=== PATIENT | female | born 1975 | race African-American/Black ===

== ENCOUNTER 2017-02-27 09:14 | Inpatient (IN) | payer OTHER ==
[2017-02-27 10:01] VITALS: BMI 20.5
--- NOTE | 2017-02-27 12:31 | HP ---
CIWA Score - CIWA Score Nausea/Vomitin-Int. Nausea w/Dry Heave Muscle Tremors: 4-Moderate,w/Arms Extend Anxiety: 4-Mod. Anxious/Guarded Agitation: 4-Moderately Restless Paroxysmal Sweats: 1-Minimal Palms Moist Orientation: 0-Oriented Tacttile Disturbances: 3-Moderate Itch/Numb/Burn Auditory Disturbances: 0-None Visual Disturbances: 0-None Headache: 2-Mild CIWA-Ar Total Score: 22 Admission ROS S - HPI Chief Complaint: DETOX TX FOR VALIUM AND ALCOHOL Allergies/Adverse Reactions: Allergies Allergy/AdvReac Type Severity Reaction Status Date / Time No Known Allergies Allergy Verified 02/27/17 11:01 History of Present Illness: 41 Y/O AA/FEMALE(TRANSGENDER MALE) WITH A HX OF ALCOHOL,VALIUM, MARIJUANA, METHAMPHETAMINE AND GBI(ETIZOLAM) SEEKING DETOX TX. PT STATES " I WANNA CHANGE MY LIFE". Exam Limitations: No Limitations - Ebola screening Have you traveled outside of the country in the last 21 days: No Have you had contact with anyone from an Ebola affected area: No Have you been sick,other than usual withdrawal symptoms: No - Review of Systems Constitutional: Chills, Loss of Appetite, Night Sweats, Changes in sleep, Unintentional Wgt. Loss EENT: reports: Tearing, Nose Congestion, Dental Problems (SENSITIVE TEETH) Respiratory: reports: No Symptoms reported Cardiac: reports: Lightheadedness GI: reports: Constipated, Diarrhea, Nausea, Poor Appetite, Poor Fluid Intake, Vomiting : reports: Dysuria, Other (DENIES SURGICAL CHANGE AT PRESENT.) Musculoskeletal: reports: Back Pain, Joint Pain, Muscle Pain Integumentary: reports: Bruising (LEFT THIGHS ON/OFF) Neuro: reports: Headache, Unsteady Gait, Dizziness Endocrine: reports: No Symptoms Reported Hematology: reports: No Symptoms Reported Psychiatric: reports: Orientated x3, Anxious, Depressed Other Systems: Reviewed and Negative Patient History - Patient Medical History Hx Anemia: No Hx Asthma: No Hx Chronic Obstructive Pulmonary Disease (COPD): No Hx Cancer: No Hx Cardiac Disorders: No Hx Congestive Heart Failure: No Hx Hypertension: No Hx Hypercholesterolemia: No Hx Pacemaker: No HX Cerebrovascular Accident: No Hx Seizures: No Hx Dementia: No Hx Diabetes: No Hx Gastrointestinal Disorders: No Hx Liver Disease: No Hx Genitourinary Disorders: Yes (UTI IN THE PAST) Hx Sexually Transmitted Disorders: Yes (SYPHILIS TX IN THE PAST) Hx Renal Disease (ESRD): No Hx Thyroid Disease: No Hx Human Immunodeficiency Virus (HIV): Yes (SINCE 1997;ON COMPLERA) Hx Hepatitis C: Yes (currently on harvoni) Hx Depression: Yes (NO MEDS) Hx Suicide Attempt: Yes (Tried to cut wrist in teens;DENIES CURRENT IDEATIONS) Hx Bipolar Disorder: No Hx Schizophrenia: No - Patient Surgical History Past Surgical History: Yes Hx Neurologic Surgery: No Hx Cataract Extraction: No Hx Cardiac Surgery: No Hx Lung Surgery: No Hx Breast Surgery: No ( ) Hx Breast Biopsy: No Hx Abdominal Surgery: No (UMBILICAL HERNIA SX 2013) Hx Appendectomy: No Hx Cholecystectomy: No Hx Genitourinary Surgery: No Hx Section: No Hx Orthopedic Surgery: No Hx Hysterectomy: No Anesthesia Reaction: No - PPD History Previous Implant?: Yes Documented Results: Negative w/o proof Implanted On Prior [facility] Admission?: Yes Date: 03/12/15 PPD to be Administered?: Yes - Reproductive History Patient is a Female of Child Bearing Age (11 -55 yrs old): No (TRANSGENDER MALE- DENIES SURGICAL CHANGE AT PRESENT.) - Smoking Cessation Smoking history: Current some day smoker Have you smoked in the past 12 months: No Aproximately how many cigarettes per day: 9 If you are a former smoker, when did you quit?: 10/17 Cigars Per Day: 0 Hx Chewing Tobacco Use: No Initiated information on smoking cessation: Yes 'Breaking Loose' booklet given: 02/27/17 - Substance & Tx. History Hx Alcohol Use: Yes (VODKA) Hx Substance Use: Yes (VALIUM/MARIJUANA/GBI/CRYSTAL METHAMPETAMINE) Substance Use Type: Alcohol, Marijuana, Tranquilizers Hx Substance Use Treatment: Yes ([facility]) - Substances Abused Alcohol Route: Oral Frequency: Daily Amount used: 1 pint vodka Age of first use: 17 Date of Last Use: 02/26/17 Diazepam Route: Oral Frequency: Daily Amount used: 20 mg Age of first use: 17 Date of Last Use: 02/26/17 Marijuana/Hashish Route: Smoking Frequency: Daily Amount used: 1/4 ounce Age of first use: 14 Date of Last Use: 02/27/17 crystal meth Route: Smoking Frequency: 1-3 times last 30 days Amount used: 2 grams Age of first use: 36 Date of Last Use: 02/27/17 Family Disease History - Family Disease History Family Disease History: Other: Father (sub abuse), Mother (sub abuse) Admission Physical Exam [facility] - Vital Signs Vital Signs: Vital Signs - 24 hr 02/27/17 09:59 Temperature 98.3 F Pulse Rate 86 Respiratory 18 Rate Blood Pressure 133/82 - Physical General Appearance: Yes: Moderate Distress, Irritable, Anxious HEENTM: Yes: EOMI, Normocephalic, DAMION Respiratory: Yes: Chest Non-Tender, Lungs Clear, Normal Breath Sounds, No Respiratory Distress Neck: Yes: Supple, Trachea in good position Breast: Yes: Breast Exam Deferred Cardiology: Yes: Regular Rhythm, Regular Rate, S1, S2 Abdominal: Yes: Normal Bowel Sounds, Non Tender, Flat, Soft Genitourinary: Yes: Other (N/C) Back: Yes: Within Normal Limits Musculoskeletal: Yes: full range of Motion, Gait Steady Extremities: Yes: Normal Range of Motion, Non-Tender Neurological: Yes: grab setter II-XII NML intact, Fully Oriented, Alert Integumentary: Yes: Dry, Warm, Other (RESOLVING ECHYMOTIC AREAS ON BOTH THIGHS DUE TO EASY BRUISING.) - Diagnostic (1) HIV (human immunodeficiency virus infection) Current Visit: Yes Status: Chronic Comment: labs for viral markers today, cont daily adherence, monitor. (2) Transgendered Current Visit: Yes Status: Chronic Comment: as per d/w dr. reese, will cont estrogen injections, incr spironolactone. (3) BMI (body mass index) 20.0-29.9 Current Visit: Yes Status: Deleted Comment: gained 4#, cont ensure and balanced diet. (4) Sedative, hypnotic or anxiolytic dependence with withdrawal, uncomplicated Current Visit: Yes Status: Chronic (5) Cannabis dependence, uncomplicated Current Visit: Yes Status: Chronic Cleared for Admission [facility] - Detox or Rehab [facility] Level of Care: Medically Managed Detox Regimen/Protocol: Valium [facility] Breath Alcohol Content Breath Alcohol Content: 0 Urine Drug Screen - Results Drug Screen Negative: No Urine Drug Screen Results: THC-Marijuana, AMP-Amphetamines, MET-Methamphetamine , BZO-Benzodiazepines
[2017-02-27] MEDS ORDERED: diphenhydrAMINE HCL 50 MG CAPSULE PO PRN (12:54)
[2017-02-27] MEDS ORDERED: MAGNESIUM CITRATE 300 ML BOTTLE PO PRN (12:54)
[2017-02-27] MEDS ORDERED: LOPERAMIDE HCL 2 MG CAPSULE PO PRN (12:54)
[2017-02-27] MEDS ORDERED: ACETAMINOPHEN 325 MG TABLET (FP) PO PRN (12:54)
[2017-02-27] MEDS ORDERED: P-EPHED 60MG/TRIPROLIDI 2.5MG TABLET PO PRN (12:54)
[2017-02-27] MEDS ORDERED: MENTHOL/PHENOL 1 EACH UD MM PRN (12:54)
[2017-02-27] MEDS ORDERED: diazePAM 5 MG TABLET PO PRN (12:54)
[2017-02-27] MEDS ORDERED: IBUPROFEN 400 MG TABLET (FP) PO PRN (12:54)
[2017-02-27] MEDS ORDERED: guaiFENesin/D-METHORPHAN HB 10 ML UNIT-DOSE CUPS PO PRN (12:54)
[2017-02-27] MEDS ORDERED: hydrOXYzine PAMOATE 25 MG CAPSULE (FP) PO PRN (12:54)
[2017-02-27] MEDS ORDERED: MAGNESIUM HYDROX 2400MG/30ML ORAL SUSPENSION 30 ML CUP PO PRN (12:54)
[2017-02-27] MEDS ORDERED: MAG HYDROX/AL HYDROX/SIMETH 30 ML UNIT-DOSE CUP PO PRN (12:54)
[2017-02-27] MEDS ORDERED: ASPIRIN 81 MG CHEWABLE TABLETS PO SCH (13:00)
[2017-02-27] MEDS ORDERED: diazePAM 5 MG TABLET PO ONE (13:04)
[2017-02-27] MEDS: SPIRONOLACTONE 25 MG TABLET (FP) PO SCH ×2 (14:09→22:13)
[2017-02-27] MEDS: diazePAM 5 MG TABLET PO SCH ×2 (14:13→22:13)
[2017-02-27] MEDS: LORATADINE 10 MG TABLET PO SCH (14:13)
--- NOTE | 2017-02-27 16:34 | CONSULT ---
[facility] Psychiatric Consult - Data Date of interview: 02/27/17 Admission source: [facility] Identifying data: First admission to [facility] for this 41 y/o AA transgender male seeking detox treatment,on ,for alcohol,amphetamine, marijuanacocaine and benzodiazepine dependence.Patient is single without children,domiciled,unemployed and supported on SSI benefits. Substance Abuse History: Urine Drug Screen Results: THC-Marijuana, SHAINA-Cocaine, OPI-Opiates, MTD-Methadone.Noted. - Smoking Cessation. Smoking history: Current some day smoker. Have you smoked in the past 12 months: No. Aproximately how many cigarettes per day: 9. If you are a former smoker, when did you quit?: 10/17. Cigars Per Day: 0. Hx Chewing Tobacco Use: No. Initiated information on smoking cessation: Yes. 'Breaking Loose' booklet given : 02/27/17. - Substance & Tx. History. Hx Alcohol Use: Yes (VODKA). Hx Substance Use: Yes (VALIUM/MARIJUANA/GBI/CRYSTAL METHAMPETAMINE). Substance Use Type: Alcohol, Marijuana, Tranquilizers. Hx Substance Use Treatment: Yes ( [facility]). - Substances Abused. Alcohol. Route: Oral. Frequency: Daily. Amount used: 1 pint vodka. Age of first use: 17. Date of Last Use: . Diazepam. Route: Oral. Frequency: Daily. Amount used: 20 mg. Age of first use: 17. Date of Last Use: 02/26/17. Marijuana/Hashish. Route: Smoking. Frequency: Daily. Amount used: 1/4 ounce. Age of first use: 14. Date of Last Use: 02/27/17. crystal meth. Route: Smoking. Frequency: 1-3 times last 30 days. Amount used: 2 grams. Age of first use: 36. Date of Last Use: 02/27/17. Confirmed by patient. Medical History: HIV infection since 1997,hepatitis C,weight loss and past history of treatment for syphilis.Remote history of inguinal herniorraphy. Psychiatric History: Remote history of a psychiatric hospitalization (name of facility not recalled).Diagnosis : none as per patient.No OPD care.Not on psychotropic medications.Leeann Martinez reports a history of suicide attempt via wrist-cutting during teenage years. Physical/Sexual Abuse/Trauma History: Patient declines to discuss this topic. Mental Status Exam - Mental Status Exam Alert and Oriented to: Time, Place, Person Cognitive Function: Good Patient Appearance: Well Groomed (thin habitus) Mood: Apprehensive Affect: Appropriate Patient Behavior: Fatigued, Cooperative Speech Pattern: Clear Voice Loudness: Normal Thought Process: Goal Oriented Thought Disorder: Not Present Hallucinations: Denies Suicidal Ideation: Denies Homicidal Ideation: Denies Insight/Judgement: Poor Sleep: Well (as per self report) Appetite: Good Muscle strength/Tone: Normal Gait/Station: Normal Psychiatric Findings - Problem List ([place] 1, 2,3) (1) Cannabis dependence, uncomplicated Current Visit: Yes Status: Acute (2) Sedative, hypnotic or anxiolytic dependence with withdrawal, uncomplicated Current Visit: Yes Status: Acute (3) Amphetamine abuse Current Visit: Yes Status: Acute (4) Cocaine dependence Current Visit: Yes Status: Acute (5) Substance induced mood disorder Current Visit: Yes Status: Acute (6) HIV (human immunodeficiency virus infection) Current Visit: Yes Status: Chronic Comment: labs for viral markers today, cont daily adherence, monitor. (7) Hypertriglyceridemia Current Visit: Yes Status: Chronic Comment: labs today, may need to start statin if persistent. low chol/fat diet advised. (8) Weight loss Current Visit: Yes Status: Chronic Comment: offer ensure supplement, labs today, she suspects is r/t hormone fluctuation, appetite is good, normal po intake. - Initial Treatment Plan Initial Treatment Plan: Psychoeducation.Detoxification.Observation.
[2017-02-27 17:03] LABS: URINE APPEARANCE CLEAR; URINE BILIRUBIN NEGATIVE (NEGATIVE); URINE BLOOD NEGATIVE (NEGATIVE); URINE COLOR LTYELLOW; URINE GLUCOSE (UA) NEGATIVE (NEGATIVE); URINE KETONE NEGATIVE (NEGATIVE); URINE LEUK ESTERASE NEGATIVE (NEGATIVE); URINE NITRITE NEGATIVE (NEGATIVE); URINE PROTEIN NEGATIVE (NEGATIVE); URINE UROBILINOGEN NEGATIVE E.U./dl (0.2-1.0)
[2017-02-27] MEDS: THIAMINE HCL 100 MG TABLET (FP) PO SCH (22:13)
[2017-02-28] MEDS: diazePAM 5 MG TABLET PO SCH ×3 (05:35→23:12)
[2017-02-28] MEDS: SPIRONOLACTONE 25 MG TABLET (FP) PO SCH ×3 (07:42→23:13)
[2017-02-28] MEDS: EMTRICITAB/RILPIVIRINE/TENOFOV 1 EACH TABLET PO SCH (07:43)
[2017-02-28 10:56] LABS: MCH 29.8 pg (25.7-33.7); MCHC 33.4 g/dl (32.0-36.0); MEAN CELL VOLUME 89.4 fl (80-96); MEAN PLT VOLUME 9.3 fl (7.5-11.1); PLATELET COUNT 273 K/MM3 (134-434); RDW 14.7 % (11.6-15.6); WHITE BLOOD COUNT 6.1 K/mm3 (4.0-10.0)
[2017-02-28] MEDS: PRENATAL VITAMINS W/ FOLIC ACID TABLET (FP) PO SCH (10:56)
[2017-02-28] MEDS: LORATADINE 10 MG TABLET PO SCH (10:56)
[2017-02-28] MEDS: ASPIRIN 81 MG CHEWABLE TABLETS PO SCH (10:56)
[2017-02-28 11:13] LABS: ALBUMIN 3.9 g/dl (3.4-5.0); CALCIUM 8.9 mg/dL (8.5-10.1)
[2017-02-28 11:19] LABS: ALK PHOS 79 U/L (45-117); ANION GAP 9 (8-16); BILIRUBIN,TOTAL 0.4 mg/dL (0.2-1.0); CO2 26 mmol/L (21-32); COCKROFT - GAULT 90.3635; CREATININE 0.8 mg/dL (0.55-1.02); GLUCOSE,RANDOM 89 mg/dL (74-106); SGOT/AST 28 U/L (15-37); SGPT/ALT 21 U/L (12-78); TOT PROT 7.1 g/dl (6.4-8.2)
[2017-02-28 12:49] LABS: SICKLE CELL SCREEN POSITIVE (NEGATIVE)
--- NOTE | 2017-02-28 13:23 | PN ---
S CIWA - CIWA Score Nausea/Vomitin Muscle Tremors: 3 Anxiety: 3 Agitation: 2 Paroxysmal Sweats: 1-Minimal Palms Moist Orientation: 0-Oriented Tacttile Disturbances: 1-Very Mild Itch/Numbness Auditory Disturbances: 1-Very Mild Visual Disturbances: 1-Very Mild Sensitivity Headache: 2-Mild CIWA-Ar Total Score: 17 BHS Progress Note (SOAP) Subjective: ALERT,IRRITABLE,ANXIOUS,INTERRUPTED SLEEP,TREMOR Objective: 02/28/17 13:21 Vital Signs Temperature 98.1 F 02/28/17 11:09 Pulse Rate 88 02/28/17 11:09 Respiratory Rate 20 02/28/17 11:09 Blood Pressure 124/80 02/28/17 11:09 O2 Sat by Pulse Oximetry (%) EKG NSR,NORMAL ECG Laboratory Last Values WBC 6.1 K/mm3 (4.0-10.0) 02/28/17 06:05 RBC 4.22 M/mm3 (3.60-5.2) 02/28/17 06:05 Hgb 12.6 GM/dL (10.7-15.3) 02/28/17 06:05 Hct 37.7 % (32.4-45.2) 02/28/17 06:05 MCV 89.4 fl (80-96) 02/28/17 06:05 MCHC 33.4 g/dl (32.0-36.0) 02/28/17 06:05 RDW 14.7 % (11.6-15.6) 02/28/17 06:05 Plt Count 273 K/MM3 (134-434) 02/28/17 06:05 MPV 9.3 fl (7.5-11.1) 02/28/17 06:05 Sickle Cell Screen Positive (NEGATIVE) 02/28/17 06:05 Sodium 140 mmol/L (136-145) 02/28/17 06:05 Potassium 4.2 mmol/L (3.5-5.1) 02/28/17 06:05 Chloride 105 mmol/L (98-107) 02/28/17 06:05 Carbon Dioxide 26 mmol/L (21-32) 02/28/17 06:05 Anion Gap 9 (8-16) 02/28/17 06:05 BUN 8 mg/dL (7-18) 02/28/17 06:05 Creatinine 0.8 mg/dL (0.55-1.02) 02/28/17 06:05 Creat Clearance w eGFR > 60 (>60) 02/28/17 06:05 Random Glucose 89 mg/dL (74-106) 02/28/17 06:05 Calcium 8.9 mg/dL (8.5-10.1) 02/28/17 06:05 Total Bilirubin 0.4 mg/dL (0.2-1.0) 02/28/17 06:05 AST 28 U/L (15-37) D 02/28/17 06:05 ALT 21 U/L (12-78) 02/28/17 06:05 Alkaline Phosphatase 79 U/L (45-117) 02/28/17 06:05 Total Protein 7.1 g/dl (6.4-8.2) 02/28/17 06:05 Albumin 3.9 g/dl (3.4-5.0) 02/28/17 06:05 Urine Color Ltyellow 02/27/17 14:00 Urine Appearance Clear 02/27/17 14:00 Urine pH 7.0 (5.0-8.0) 02/27/17 14:00 Ur Specific [place] 1.014 (1.001-1.035) 02/27/17 14:00 Urine Protein Negative (NEGATIVE) 02/27/17 14:00 Urine Glucose (UA) Negative (NEGATIVE) 02/27/17 14:00 Urine Ketones Negative (NEGATIVE) 02/27/17 14:00 Urine Blood Negative (NEGATIVE) 02/27/17 14:00 Urine Nitrite Negative (NEGATIVE) 02/27/17 14:00 Urine Bilirubin Negative (NEGATIVE) 02/27/17 14:00 Urine Urobilinogen Negative E.U./dl (0.2-1.0) 02/27/17 14:00 Ur Leukocyte Esterase Negative (NEGATIVE) 02/27/17 14:00 RPR Titer Nonreactive (NONREACTIVE) 02/28/17 06:05 Assessment: 02/28/17 13:22 WITHDRAWAL SYMPTOM Plan: CONTINUE DETOX
[2017-02-28] MEDS: THIAMINE HCL 100 MG TABLET (FP) PO SCH (23:12)
[2017-03-01] MEDS: SPIRONOLACTONE 25 MG TABLET (FP) PO SCH ×3 (06:13→22:15)
[2017-03-01] MEDS: ASPIRIN 81 MG CHEWABLE TABLETS PO SCH (10:38)
[2017-03-01] MEDS: LORATADINE 10 MG TABLET PO SCH (10:38)
[2017-03-01] MEDS: diazePAM 5 MG TABLET PO SCH ×2 (10:38→22:16)
[2017-03-01] MEDS: PRENATAL VITAMINS W/ FOLIC ACID TABLET (FP) PO SCH (10:38)
[2017-03-01] MEDS: EMTRICITAB/RILPIVIRINE/TENOFOV 1 EACH TABLET PO SCH (10:38)
--- NOTE | 2017-03-01 14:14 | PN ---
S CIWA - CIWA Score Nausea/Vomitin Muscle Tremors: 3 Anxiety: 3 Agitation: 2 Paroxysmal Sweats: 1-Minimal Palms Moist Orientation: 0-Oriented Tacttile Disturbances: 1-Very Mild Itch/Numbness Auditory Disturbances: 1-Very Mild Visual Disturbances: 1-Very Mild Sensitivity Headache: 2-Mild CIWA-Ar Total Score: 17 BHS Progress Note (SOAP) Subjective: ALERT,IRRITABLE,ANXIOUS,TREMOR,INTERRUPTED SLEEP Objective: 03/01/17 14:13 Vital Signs Temperature 98.2 F 03/01/17 10:30 Pulse Rate 91 H 03/01/17 10:30 Respiratory Rate 18 03/01/17 10:30 Blood Pressure 126/79 03/01/17 10:30 O2 Sat by Pulse Oximetry (%) Laboratory Last Values WBC 6.1 K/mm3 (4.0-10.0) 02/28/17 06:05 RBC 4.22 M/mm3 (3.60-5.2) 02/28/17 06:05 Hgb 12.6 GM/dL (10.7-15.3) 02/28/17 06:05 Hct 37.7 % (32.4-45.2) 02/28/17 06:05 MCV 89.4 fl (80-96) 02/28/17 06:05 MCHC 33.4 g/dl (32.0-36.0) 02/28/17 06:05 RDW 14.7 % (11.6-15.6) 02/28/17 06:05 Plt Count 273 K/MM3 (134-434) 02/28/17 06:05 MPV 9.3 fl (7.5-11.1) 02/28/17 06:05 Sickle Cell Screen Positive (NEGATIVE) 02/28/17 06:05 Sodium 140 mmol/L (136-145) 02/28/17 06:05 Potassium 4.2 mmol/L (3.5-5.1) 02/28/17 06:05 Chloride 105 mmol/L (98-107) 02/28/17 06:05 Carbon Dioxide 26 mmol/L (21-32) 02/28/17 06:05 Anion Gap 9 (8-16) 02/28/17 06:05 BUN 8 mg/dL (7-18) 02/28/17 06:05 Creatinine 0.8 mg/dL (0.55-1.02) 02/28/17 06:05 Creat Clearance w eGFR > 60 (>60) 02/28/17 06:05 Random Glucose 89 mg/dL (74-106) 02/28/17 06:05 Calcium 8.9 mg/dL (8.5-10.1) 02/28/17 06:05 Total Bilirubin 0.4 mg/dL (0.2-1.0) 02/28/17 06:05 AST 28 U/L (15-37) D 02/28/17 06:05 ALT 21 U/L (12-78) 02/28/17 06:05 Alkaline Phosphatase 79 U/L (45-117) 02/28/17 06:05 Total Protein 7.1 g/dl (6.4-8.2) 02/28/17 06:05 Albumin 3.9 g/dl (3.4-5.0) 02/28/17 06:05 Urine Color Ltyellow 02/27/17 14:00 Urine Appearance Clear 02/27/17 14:00 Urine pH 7.0 (5.0-8.0) 02/27/17 14:00 Ur Specific [place] 1.014 (1.001-1.035) 02/27/17 14:00 Urine Protein Negative (NEGATIVE) 02/27/17 14:00 Urine Glucose (UA) Negative (NEGATIVE) 02/27/17 14:00 Urine Ketones Negative (NEGATIVE) 02/27/17 14:00 Urine Blood Negative (NEGATIVE) 02/27/17 14:00 Urine Nitrite Negative (NEGATIVE) 02/27/17 14:00 Urine Bilirubin Negative (NEGATIVE) 02/27/17 14:00 Urine Urobilinogen Negative E.U./dl (0.2-1.0) 02/27/17 14:00 Ur Leukocyte Esterase Negative (NEGATIVE) 02/27/17 14:00 RPR Titer Nonreactive (NONREACTIVE) 02/28/17 06:05 Assessment: 03/01/17 14:13 WITHDRAWAL SYMPTOM Plan: CONTINUE DETOX
[2017-03-01] MEDS: THIAMINE HCL 100 MG TABLET (FP) PO SCH (22:15)
--- NOTE | 2017-03-02 00:15 | EKG ---
Test Reason : Blood Pressure : / mmHG Vent. Rate : 077 BPM Atrial Rate : 077 BPM P-R Int : 154 ms QRS Dur : 084 ms QT Int : 382 ms P-R-T Axes : 065 063 062 degrees QTc Int : 432 ms NORMAL SINUS RHYTHM NORMAL ECG NO PREVIOUS ECGS AVAILABLE Confirmed by ECTOR CHE, UDAY ([id number]) on 03/02/2017 12:15:22 AM Referred By: Surinder Mosley Confirmed By:UDAY BARNEY MD
[2017-03-02] MEDS: SPIRONOLACTONE 25 MG TABLET (FP) PO SCH (05:36)
[2017-03-02] MEDS: EMTRICITAB/RILPIVIRINE/TENOFOV 1 EACH TABLET PO SCH (07:44)
--- NOTE | 2017-03-02 10:30 | PN ---
S Progress Note (SOAP) Subjective: I am feeling much better i am not taking anymore medication Objective: 03/02/17 10:29 Vital Signs Temperature 98.8 F 03/02/17 06:00 Pulse Rate 80 03/02/17 06:00 Respiratory Rate 16 03/02/17 06:00 Blood Pressure 133/74 03/02/17 06:00 O2 Sat by Pulse Oximetry (%) awake/alert ambulating no acute distress Assessment: 03/02/17 10:30 no withdrawal s/s noted Plan: d/c home today.
[2017-03-02 10:40] VITALS: BP 114/94; PULSE 117; TEMP 99.1
[2017-03-02] MEDS: diazePAM 5 MG TABLET PO SCH (10:40)
[2017-03-02] MEDS: PRENATAL VITAMINS W/ FOLIC ACID TABLET (FP) PO SCH (10:40)
[2017-03-02] MEDS: ASPIRIN 81 MG CHEWABLE TABLETS PO SCH (10:40)
[2017-03-02] MEDS: LORATADINE 10 MG TABLET PO SCH (10:40)
--- NOTE | 2017-03-02 10:50 | DS ---
[facility] Detox Discharge Summary Admission Date: 02/27/17 Discharge Date: 03/02/17 - History Present History: Cannabis Dependence, Cocaine Dependence, Sedative Dependence - Physical Exam Results Vital Signs: Vital Signs Temperature 99.1 F 03/02/17 10:00 Pulse Rate 117 H 03/02/17 10:00 Respiratory Rate 20 03/02/17 10:00 Blood Pressure 114/94 03/02/17 10:00 O2 Sat by Pulse Oximetry (%) - Medication Discharge Medications: Ambulatory Orders Lactose-Reduced Food [Ensure Liquid] 237 ml PO TID #90 liquid 09/22/16 Emtricitab/Rilpivirine/Tenofov [Complera -] 1 each PO DAILY #30 tablet 01/28/17 Estradiol Valerate [Delestrogen] 20 mg IM ASDIR #1 vial 01/28/17 Loratadine [Claritin -] 10 mg PO DAILY #30 tablet 01/28/17 Multivitamins [Multivit ([facility] Formulary)] 1 tab PO DAILY #30 tab 01/28/17 Aspirin [ASA -] 1 tab PO DAILY 02/18/17 Spironolactone 50 mg PO TID #90 tablet 02/24/17 Ibuprofen 600 mg PO BID PRN #30 tablet 02/26/17 Azithromycin 2 tab PO ONCE 02/27/17 - AMA Did Patient Leave Against Medical Advice: Yes (i am not taking any medication so i want to go home)
[2017-03-03] MEDS ORDERED: diazePAM 5 MG TABLET PO SCH (10:00)
[2017-03-06 10:47] LABS: Hgb A2 4.3
== END 2017-03-02 10:52 | disposition home or self-care (01) | DRG 774 ==
LOC: YASAS 09:14 → Y6N 12:10
PROVIDERS: ADMIT Internal Medicine; ATTEND Internal Medicine
PROC: HZ2ZZZZ Detoxification Services for Substance Abuse Treatment (ICD-10-PCS; principal; 2017-03-02)
DX: F13.230 Sedative, hypnotic or anxiolytic dependence with withdrawal, uncomplicated (principal); F10.230 Alcohol dependence with withdrawal, uncomplicated; F14.20 Cocaine dependence, uncomplicated; F12.20 Cannabis dependence, uncomplicated; F15.10 Other stimulant abuse, uncomplicated; F32.9 Major depressive disorder, single episode, unspecified; Z21 Asymptomatic human immunodeficiency virus [HIV] infection status; R63.4 Abnormal weight loss; Z68.20 Body mass index [BMI] 20.0-20.9, adult; F64.8 Other gender identity disorders
CPT/HCPCS: 36415; 80053; 81003; 83021; 85027; 85660; 86593; 93005; 93010

== ENCOUNTER → 2019-07-01 | Outpatient (CLI) | payer OTHER | LOC: YHH 15:29 ==

== ENCOUNTER 2022-01-23 12:26 | Emergency (ER) | payer OTHER ==
[2022-01-23 12:43] VITALS: BP 126/79; PULSE 90; TEMP 97.9; BMI 21.2
[2022-01-23] MEDS ORDERED: IBUPROFEN 600 MG TABLET (FP) PO ONE ×2 (13:26→13:28)
== END 2022-01-23 14:06 | disposition home or self-care (01) ==
LOC: JERFT 12:26
DX: M79.645 Pain in left finger(s) (principal)
CPT/HCPCS: 73110-TC-LT-FY; 73130-TC-LT-FY; 99283-25

== ENCOUNTER 2023-03-07 14:13 | Emergency (ER) | payer OTHER ==
[2023-03-07 14:32] VITALS: BP 152/82; PULSE 95; RESP 20; TEMP 98.1; BMI 23.6
[2023-03-07 15:53] LABS: EPI CELLS 9 /uL (0-25.1); HYALINE CASTS 1 /uL (0-3.1); PH,URINE 5.5 (5.0-8.0); URINE APPEARANCE CLEAR; URINE BACTERIA 84 /uL (0-1359); URINE BILIRUBIN NEGATIVE (NEGATIVE); URINE COLOR YELLOW; URINE GLUCOSE (UA) NEGATIVE (NEGATIVE); URINE KETONE NEGATIVE (NEGATIVE); URINE LEUK ESTERASE NEGATIVE (NEGATIVE); URINE NITRITE NEGATIVE (NEGATIVE); URINE PROTEIN 1+ (NEGATIVE); URINE RBC 1787 /uL (0-23.9); URINE UROBILINOGEN 0.2 mg/dL (0.2-1.0); URINE WBC 15 /uL (0-25.8)
[2023-03-07] MEDS ORDERED: SULFAMETHOXAZOLE/TRIMETHOPRIM 800MG/160MG D.S. TABLET PO ONE (17:45)
[2023-03-07] MEDS ORDERED: SULFAMETHOXAZOLE/TRIMETHOPRIM 800MG/160MG D.S. TABLET ONE (17:49)
== END 2023-03-07 17:55 | disposition home or self-care (01) ==
LOC: JERFT 14:13 → EDSEX 14:13 → JER 14:13 → JERFT 17:55
DX: N30.91 Cystitis, unspecified with hematuria (principal); M54.9 Dorsalgia, unspecified; R30.0 Dysuria
CPT/HCPCS: 74176-TC; 81003; 87086; 87186; 99284-25

== ENCOUNTER 2023-04-11 22:25 | Emergency (ER) | payer OTHER ==
[2023-04-11 22:33] VITALS: BP 127/80; PULSE 96; RESP 18; TEMP 98.3; BMI 24.3
== END 2023-04-11 23:14 | disposition left against medical advice (07) ==
LOC: JER 22:25
DX: R07.9 Chest pain, unspecified (principal)
CPT/HCPCS: 99281-25

== ENCOUNTER 2023-12-30 10:34 | Emergency (ER) | payer OTHER ==
[2023-12-30 11:26] VITALS: BMI 24.3
[2023-12-30 12:05] LABS: BASO % 0.6 % (0-2.0); EOS % 0.7 % (0-4.5); HEMOGLOBIN 12.8 GM/dL (10.7-15.3); LYMPH % 37.7 % (8-40); MCH 28.9 pg (25.7-33.7); MCHC 33.6 g/dl (32.0-36.0); MEAN CELL VOLUME 85.9 fl (80-96); MEAN PLT VOLUME 8.4 fl (7.5-11.1); MONO % 4.6 % (3.8-10.2); NEUT % 56.4 % (42.8-82.8); PLATELET COUNT 317 10^3/uL (134-434); RBC 4.42 M/mm3 (3.60-5.2); WHITE BLOOD COUNT 9.7 K/mm3 (4.0-10.0)
[2023-12-30 12:11] LABS: HCG,QUALITATIVE URINE Negative
[2023-12-30] MEDS ORDERED: ACETAMINOPHEN INJECTION 100 ML IVPB ONE (12:13)
[2023-12-30 12:15] LABS: INR 1.07 (0.83-1.09); PROTHROMBIN TIME (PATIENT) 12.4 SEC (9.7-13.0)
[2023-12-30 12:18] LABS: ACTIVATED PTT 34.3 SECONDS (25.2-36.5); EPI CELLS 31 /uL (0-25.1); HYALINE CASTS 1 /uL (0-3.1); URINE APPEARANCE CLEAR; URINE BACTERIA 324 /uL (0-1359); URINE BILIRUBIN NEGATIVE (NEGATIVE); URINE COLOR YELLOW; URINE GLUCOSE (UA) NEGATIVE (NEGATIVE); URINE KETONE 1+ (NEGATIVE); URINE LEUK ESTERASE NEGATIVE (NEGATIVE); URINE NITRITE NEGATIVE (NEGATIVE); URINE PROTEIN 1+ (NEGATIVE); URINE RBC 12 /uL (0-23.9); URINE UROBILINOGEN 0.2 mg/dL (0.2-1.0); URINE WBC 8 /uL (0-25.8)
[2023-12-30] MEDS: ACETAMINOPHEN 1000 MG/100 ML BAG IVPB ONE (12:19)
[2023-12-30] MEDS: SODIUM CHLORIDE 0.9% 500 ML INFUS.BAG IV ONE (12:19)
[2023-12-30 12:31] LABS: POTASSIUM 4.1 mmol/L (3.5-5.1)
[2023-12-30 12:33] LABS: CALCIUM 9.7 mg/dL (8.5-10.1)
[2023-12-30 12:34] LABS: ALBUMIN 3.6 g/dl (3.4-5.0); BLOOD UREA NITROGEN 8.4 mg/dL (7-18)
[2023-12-30 12:36] LABS: CREATININE 0.8 mg/dL (0.55-1.3)
[2023-12-30 12:38] LABS: BILIRUBIN,TOTAL 0.2 mg/dL (0.2-1); TOT PROT 7.5 g/dl (6.4-8.2)
[2023-12-30 15:38] VITALS: BP 115/47; PULSE 81; RESP 19; TEMP 98.1
== END 2023-12-30 17:01 | disposition home or self-care (01) ==
LOC: JER 10:34
PROC: 3E033NZ Introduction of Analgesics, Hypnotics, Sedatives into Peripheral Vein, Percutaneous Approach (ICD-10-PCS; principal; 2023-12-30)
DX: K52.9 Noninfective gastroenteritis and colitis, unspecified (principal); R10.9 Unspecified abdominal pain; R11.0 Nausea; R51.9 Headache, unspecified; R07.0 Pain in throat; Z20.822 Contact with and (suspected) exposure to COVID-19
CPT/HCPCS: 0241U-QW; 36415; 74177-TC; 76705-TC; 80053; 81003; 83605; 83690; 84484; 84703; 85025; 85610; 85730; 86140; 96374; 99285-25; J0131